=== PATIENT | male | born 1975 | race Two or more races ===

== ENCOUNTER 2020-12-25 13:10 | Day surgery (SDC) | payer BC, MEDICAID, OTHER ==
[~2020-12-25] VITALS: Ht 162.6 cm; Wt 80.2 kg
[2020-12-25 14:03] LABS: BASO % 0.5 % (0.0-1.0); EOS # 0.1 10^3/uL (0.0-0.5); EOS % 1.1 % (0.0-3.0); HEMATOCRIT 40.7 % (42.0-52.0); HEMOGLOBIN 13.6 g/dl (13.5-17.5); LYMPH # 1.7 10^3/uL (1.5-5.0); LYMPH % 26.9 % (24.0-44.0); MEAN CORPUSCULAR HEMOGLOBIN 27.4 pg (27.0-33.0); MEAN CORPUSCULAR HGB CONC 33.4 g/dl (32.0-36.5); MEAN CORPUSCULAR VOLUME 81.9 fl (80.0-96.0); MONO # 0.5 10^3/uL (0.0-0.8); MONO % 7.6 % (2.0-8.0); NEUTROPHILS # 4.1 10^3/uL (1.5-8.5); NEUTROPHILS % 63.7 % (36.0-66.0); PLATELET COUNT, AUTOMATED 279 10^3/uL (150-450); RED BLOOD COUNT 4.97 10^6/uL (4.30-6.10); WHITE BLOOD COUNT 6.4 10^3/uL (4.0-10.0)
[2020-12-25 14:33] LABS: ALBUMIN 3.9 GM/DL (3.2-5.2); ALT/SGPT 31 U/L (12-78); BILIRUBIN,DIRECT 0.2 MG/DL (0.0-0.2); BILIRUBIN,TOTAL 0.8 MG/DL (0.2-1.0); BLOOD UREA NITROGEN 19 MG/DL (7-18); CALCIUM LEVEL 8.9 MG/DL (8.5-10.1); CARBON DIOXIDE LEVEL 28 MEQ/L (21-32); CHLORIDE LEVEL 103 MEQ/L (98-107); CREATININE FOR GFR 0.98 MG/DL (0.70-1.30); GLOMERULAR FILTRATION RATE > 60.0 (>60); GLUCOSE, FASTING 105 MG/DL (70-100); LIPASE 87 U/L (73-393); POTASSIUM SERUM 3.7 MEQ/L (3.5-5.1); SODIUM LEVEL 135 MEQ/L (136-145); TOTAL PROTEIN 7.5 GM/DL (6.4-8.2)
[2020-12-25] MEDS ORDERED: ONDANSETRON 4MG/2ML VIAL IV ONE (14:45)
[2020-12-25] MEDS ORDERED: MORPHINE 2 MG/ML 1ML VIAL (J2270) IV ONE (14:45)
[2020-12-25] MEDS ORDERED: ISOVUE-370 76% 100ML VIAL As Ordered ONE (14:47)
--- NOTE | 2020-12-25 15:28 | REP ---
INDICATION: abd pain, r/o diverticulitis. COMPARISON: None. TECHNIQUE: Helical scanning was acquired and 4 mm axial images are re-formatted. Coronal and sagittal MPR images were generated and reviewed. The contrast enhancement dose is 100 mL of intravenous Isovue 370. 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 The lung bases are clear on axial CT images. The liver and the spleen are normal in size homogeneous in texture. There is a small accessory splenule. No abnormality is noted in the pancreas. The gallbladder is unremarkable. Normal adrenal glands are seen bilaterally. The kidneys enhance symmetrically and are morphologically intact. No retroperitoneal mass or adenopathy is seen. Small and large bowel loops are normal in the upper abdomen. Pelvic CT images show no CT evidence of diverticulosis. Urinary bladder, prostate, and seminal vesicles are unremarkable. In the right lower quadrant, the appendix is noted to be dilated and fluid-filled. It contains some slightly increased attenuation material in its lumen near the base. There is Ab appendiceal stranding adjacent to the course of the appendix which lies just anterior to the psoas muscle and terminates in the midline in the superior pelvis. CT findings are compatible with early acute appendicitis. No abscess or free air is seen. The appendix measures 1.1 cm in greatest transverse dimension. There is a 7 mm Ab appendiceal lymph node showing contrast enhancement. Study is otherwise unremarkable. IMPRESSION: CT findings compatible with early acute appendicitis with ab-appendiceal stranding, appendiceal dilation, 11 mm, and increased density intraluminal material. No abscess or free air. Otherwise negative CT study abdomen and pelvis. <Electronically signed by Alessandro Sherwood > 12/25/20 [id number]
[2020-12-25] MEDS ORDERED: PIPERACILLIN/TAZOBACTAM SOD 3.375 GM in D5W MINI-BAG PLUS 50 ML IV ONE (16:00)
[2020-12-25] MEDS ORDERED: NS 1,000 ML IV SCH (16:00)
[2020-12-25] MEDS: MORPHINE 4 MG/ML 1ML VIAL/SYRINGE (J2270) IV PRN ×2 (16:13→16:53)
[2020-12-25 17:07] LABS: RSV AMPLIFICATION NEGATIVE (NEGATIVE)
[2020-12-25] MEDS ORDERED: fentaNYL 100 MCG/2 ML INJECTION (J3010) As Ordered ONE (17:17)
[2020-12-25] MEDS ORDERED: MIDAZOLAM INJ 2MG/2ML VIAL (J2250 PER 1MG) As Ordered ONE (17:18)
[2020-12-25] MEDS ORDERED: propofoL 200 MG/20 ML VIAL As Ordered ONE (17:19)
[2020-12-25] MEDS ORDERED: SUCCINYLCHOLINE 100 MG/5 ML SYRINGE (J0330) As Ordered ONE (17:20)
[2020-12-25] MEDS ORDERED: BUPIVACAINE/EPIN 0.25% 30 ML VIAL As Ordered ONE (17:25)
[2020-12-25] MEDS ORDERED: ACETAMINOPHEN 1000MG 100ML IV BTL (OFIRMEV) (J0131 PER 10MG) As Ordered ONE (18:00)
[2020-12-25] MEDS ORDERED: LIDOCAINE 2% 100MG/5ML SDV (FOR ANES.) As Ordered ONE (18:07)
[2020-12-25] MEDS ORDERED: HYDROmorphone HCL 2 MG/ML 1ML VIAL As Ordered ONE (18:10)
[2020-12-25] MEDS ORDERED: SUGAMMADEX SODIUM 500 MG/5 ML VIAL (BRIDION) As Ordered ONE (18:10)
[2020-12-25] MEDS ORDERED: dexameTHASONE 4 MG/ML 1ML VIAL (J1100 PER 1MG) As Ordered ONE (18:10)
[2020-12-25] MEDS ORDERED: ONDANSETRON 4MG/2ML VIAL As Ordered ONE (18:10)
[2020-12-25] MEDS ORDERED: KETOROLAC 60MG 2ML VIAL As Ordered ONE (18:23)
[2020-12-25] MEDS ORDERED: MORPHINE 2 MG/ML 1ML VIAL (J2270) IV PRN ×2 (18:35)
[2020-12-25] MEDS ORDERED: LR 1,000 ML IV SCH ×2 (18:35→19:05)
[2020-12-25] MEDS ORDERED: NORCO, ANEXSIA 5/325MG TABLET (HYDROcodone/ACETAMINOPHEN) PO PRN ×2 (18:35)
[2020-12-25] MEDS ORDERED: HYDROMORPHONE HCL 0.5 MG/ 0.5 ML SYRINGE (J1170 PER 1) IV PRN (19:05)
[2020-12-25] MEDS ORDERED: oxyCODONE 5MG TAB PO PRN (19:05)
[2020-12-25] MEDS ORDERED: ONDANSETRON 4MG/2ML VIAL IV PRN (19:05)
[2020-12-25] MEDS ORDERED: fentaNYL 100 MCG/2 ML INJECTION (J3010) IV PRN (19:05)
[2020-12-25 21:37] VITALS: BP 119/75
[2020-12-25] MEDS: PIPERACILLIN/TAZOBACTAM SOD 3.375 GM in D5W MINI-BAG PLUS 50 ML IV SCH (22:27)
[2020-12-26] MEDS: KETOROLAC 30 MG/ML 1ML VIAL IV SCH ×2 (01:01→06:33)
[2020-12-26 02:00] VITALS: BP 117/74
[2020-12-26] MEDS: PIPERACILLIN/TAZOBACTAM SOD 3.375 GM in D5W MINI-BAG PLUS 50 ML IV SCH ×2 (04:05→10:39)
[2020-12-26 06:00] VITALS: BP 113/53
[2020-12-26] MEDS ORDERED: HYDR-3715 PO (08:50)
[2020-12-26 10:11] VITALS: BP 113/59
[2020-12-26] MEDS ORDERED: OMEPRAZOLE 20 MG CAP PO ONE (10:30)
--- NOTE | 2020-12-26 10:40 | RO ---
OPERATIVE NOTE DATE OF OPERATION: 12/25/2020 PREOPERATIVE DIAGNOSIS: Acute appendicitis. POSTOPERATIVE DIAGNOSIS: Acute appendicitis. PROCEDURE: Laparoscopic appendectomy. SURGEON: Rosalio Cruz Jr, MD REINFORCED IRONWORKER: ANESTHESIA: General endotracheal anesthesia. EBL: Minimal. FLUIDS: Crystalloid. DESCRIPTION OF PROCEDURE: The patient was brought to the operating room and was given general anesthesia. After adequate anesthesia and preoperative antibiotics were given, the patient was prepped and draped in usual sterile fashion. A supraumbilical incision was made with skin knife. Blunt dissection was carried down to fascia. Fascia was grasped, elevated and Veress needle placed into the abdominal cavity, insufflated to 15 mm pressure. Dilating 10 mm trocar was placed under direct visualization. Suprapubic and left lower quadrant 5 mm trocars were placed. Appendix was found. Mesentery on the appendix was taken down with Harmonic scalpel, down to the base of the appendix to the cecal wall and then the base of the appendix was transected using PEE stapler. This was placed in an Endo Catch bag and brought out through the umbilicus. The right lower quadrant was copiously irrigated until clear and all trocars were removed under direct visualization. #0 Vicryl was used to close the fascia at the umbilicus and all incisions were closed with 4-0 Vicryl. Steri-Strips and dry, sterile dressing was applied. The patient was awakened, extubated and brought to the recovery room awake, alert, hemodynamically stable. Sponge and needle counts correct x2.
--- NOTE | 2020-12-26 12:24 | DS.PDOC ---
Discharge Summary General Date of Admission 12/25/20 Date of Discharge 12/26/2020 Discharge Summary General surgery. Dr Cruz PROCEDURES PERFORMED DURING STAY: Laparoscopic appendectomy 12/25/[address] Cruz ADMITTING DIAGNOSES: 1. Acute DISCHARGE DIAGNOSES: 1. Acute appendicitis status post Laparoscopic appendectomy 12/25/[address] Cruz HISTORY OF PRESENT ILLNESS: The patient is a 45-year-old male who presented to the emergency department reporting abdominal pain which started 12/25, feeling bloated. Imaging indicated acute appendicitis. HOSPITAL COURSE: The patient was taken to the operating room as per Dr Cruz for laparoscopic appendectomy 12/25/2020. The patient tolerated the procedure well. Postoperatively the patient was continued on IV Zosyn. The patient re mained afebrile. He was advanced to regular diet which he was tolerating at the time of discharge. He did report some pain around the incision sites. All dressings remained clean/dry/intact. On the morning of 12/26/2020 the patient was felt stable for discharge. DISCHARGE MEDICATIONS: Please see below. ALLERGIES: Please see below. PHYSICAL EXAMINATION ON DISCHARGE: VITAL SIGNS: Please see below. GENERAL: No acute distress, resting in bed HEENT: MMM CARDIOVASCULAR EXAMINATION: Regular rate rhythm RESPIRATORY EXAMINATION: Clear to auscultation ABDOMINAL EXAMINATION: Flat, soft, nontender, nondistended, all surgical incisions clean/dry/intact EXTREMITIES: No edema LABORATORY DATA: Please see below. IMAGING: CT abdomen/pelvis IMPRESSION: CT findings compatible with early acute appendicitis with ab-appendiceal stranding, appendiceal dilation, 11 mm, and increased density intraluminal material. No abscess or free air. Otherwise negative CT study abdomen and pelvis. <Electronically signed by Alessandro Sherwood > 12/25/20 1525 DISCHARGE PLAN: Discharge home DISCHARGE INSTRUCTIONS: Activity as tolerated, no lifting greater than 20 pounds for 2 weeks. Okay to shower but no baths or swimming. Continue to keep incisions clean and dry, dry dressing as needed. Call office with any wound drainage, fevers, chills, increasing pain or any questions or concerns. Can use ibuprofen 600 mg every 6 hours as needed [place] 5/325 1 tablet every 6 hours as needed for pain #12, no refills. I stop reference #[id number]. DISCHARGE CONDITION: Stable Vital Signs/I&Os Vital Signs Date Time Temp Pulse Resp B/P (MAP) Pulse Ox O2 Delivery O2 Flow Rate FiO2 12/26/20 10:48 20 12/26/20 10:11 98.7 80 113/59 (77) 97 Room Air 12/25/20 19:11 2.0 I&O- Last 24 Hours up to 6 AM 12/26/20 06:00 Intake Total 1360 ml Output Total 0 ml Balance 1360 ml Laboratory Data Labs 24H Laboratory Tests 2 12/25/20 13:51: Immature Granulocyte % (Auto) 0.2, Neutrophils (%) (Auto) 63.7, Lymphocytes (%) (Auto) 26.9, Monocytes (%) (Auto) 7.6, Eosinophils (%) (Auto) 1.1, Basophils (%) (Auto) 0.5, Neutrophils # (Auto) 4.1, Lymphocytes # (Auto) 1.7, Monocytes # (Auto) 0.5, Eosinophils # (Auto) 0.1, Basophils # (Auto) 0.0, Nucleated Red Blood Cells % (auto) 0.0, Anion Gap 4L, Glomerular Filtration Rate > 60.0, Calcium Level 8.9, Total Bilirubin 0.8, Direct Bilirubin 0.2, Aspartate Amino Transf (AST/SGOT) 21, Alanine Aminotransferase (ALT/SGPT) 31, Alkaline Phosphatase 74, Total Protein 7.5, Albumin 3.9, Albumin/Globulin Ratio 1.1, Lipase 87 12/25/20 16:02: Coronavirus (COVID-19)(PCR) NEGATIVE, Influenza Type A (RT-PCR) NEGATIVE, Influenza Type B (RT-PCR) NEGATIVE, Respiratory Syncytial Virus (PCR) NEGATIVE CBC/BMP Laboratory Tests 12/25/20 13:51 Discharge Medications Scheduled PRN Hydrocodone/Acetaminophen (Hydrocodone-Acetamin 5-325 mg) 1 Each Tablet, 1 TAB PO Q6HP PRN for MODERATE PAIN (PS 5-7) Allergies Coded Allergies: No Known Allergies (Unverified , 12/25/20) Melony Peres Dec 26, 2020 12:24
== END 2020-12-26 12:09 | disposition home or self-care (01) ==
LOC: M ED 13:10 → M SDC 13:11 → ENRESERV 18:44 → M MSPAV 21:38 → M SDC 12-26 12:09
PROVIDERS: ATTEND Surgery
DX: K35.890 Other acute appendicitis without perforation or gangrene (principal)
CPT/HCPCS: 44970; 74177; 80048; 80076; 83690; 85025; 87631; 88304; 96365; 96366; 96375; 96376; 99284; J0131; J0330; J1100; J1170; J1885; J2250; J2270; J2405; J2543; J3010; Q9967